=== PATIENT | male | born 1975 | race Caucasian/White ===

== ENCOUNTER 2017-01-05 20:14 | Emergency (ER) | payer OTHER ==
[2017-01-05 20:17] VITALS: TEMP 36.5; Ht 180.3 cm
[2017-01-05] MEDS ORDERED: ONDANSETRON INJ 2 MG/ML 2 ML VIAL IV PRN (20:30)
[2017-01-05] MEDS: MoRPHine SULFATE 10 MG/ML CARP/VIAL IV PRN ×2 (20:35→22:32)
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
[2017-01-05] MEDS ORDERED: OPTIRAY 320 IV PRN (20:45)
[2017-01-05 20:47] LABS: HEMATOCRIT 46.3 % (42-52); MEAN CELL VOLUME 93.5 fL (80-100); MEAN CORPUSCULAR HEMOGLOBIN 32.5 pg (25-34); MEAN CORPUSCULAR HGB CONC 34.8 g/dl (32-36); MEAN PLATELET VOLUME 10.3 fL (7.4-10.4); PLATELET COUNT 279 K/uL (130-400); RED BLOOD COUNT 4.95 M/uL (4.7-6.1); WHITE BLOOD COUNT 13.04 K/uL (4.8-10.8)
[2017-01-05 21:03] LABS: BLOOD UREA NITROGEN 11 mg/dl (7-18); BUN/CREATININE RATIO 9.5 (10-20); CALCIUM 9.1 mg/dl (8.5-10.1); CARBON DIOXIDE 28 mmol/L (21-32); CHLORIDE 105 mmol/L (98-107); CREATININE 1.13 mg/dl (0.60-1.40); GLUCOSE 119 mg/dl (70-99); POTASSIUM 4.4 mmol/L (3.5-5.1); SODIUM 138 mmol/L (136-145)
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
--- NOTE | 2017-01-05 21:51 | DIAGNOSTIC IMAGING REPORT ---
ABD/PELVIS IV CONTRAST ONLY CLINICAL HISTORY: 41 years-old Male presenting with fall severe pain left lower chest and LUQ. TECHNIQUE: Multidetector CT of the abdomen and pelvis was performed after the administration of intravenous contrast. IV contrast: 94 mL of Optiray 320. A dose lowering technique was used consistent with the principles of ALARA (as low as reasonably achievable). COMPARISON: None. CT DOSE (mGy.cm): The estimated cumulative dose is 861.93 mGy.cm. FINDINGS: Triage Register Nurse topogram: Unremarkable. Lung bases: Bibasilar bandlike opacities likely atelectasis. Normal heart size. No pericardial or pleural effusion. Liver: Normal morphology. No liver lesion. Patent hepatic vasculature. Biliary: No intrahepatic or extrahepatic biliary ductal dilatation. Normal gallbladder. Pancreas: Normal. Spleen: Normal. Adrenal glands: Normal. Kidneys and ureters: Normal. No hydronephrosis. Bladder: Normal. Pelvic organs: Prostate and seminal vesicles normal. Bowel: Normal appendix. No bowel obstruction. No gross evidence of bowel wall thickening. Peritoneal cavity: No free fluid or intraperitoneal gas. Lymph nodes: No enlarged lymph nodes in the abdomen or pelvis. Vasculature: Aorta and IVC patent and normal in caliber. Abdominal wall: Normal. Musculoskeletal: Normal. IMPRESSION: 1. No acute intra-abdominal injury. Electronically signed by: Srinivasa Niño M.D. 01/05/2017 9:49 PM Dictated Date/Time: 01/05/2017 9:45 PM
[2017-01-06 00:13] LABS: URINE APPEARANCE CLEAR (CLEAR); URINE BILIRUBIN NEG (NEG); URINE COLOR YELLOW; URINE EPITHELIAL CELL AUTO 20-30 /lpf (0-5); URINE NITRITE NEG (NEG); URINE SPECIFIC GRAVITY > 1.045 (1.000-1.030); UROBILINOGEN NEG (NEG); ZZUR CULT IF INDIC CLEAN CATCH NO
[2017-01-06 00:18] LABS: MANUAL MICROSCOPIC REQUIRED? NO; REVIEW REQ? NO
[2017-01-06] MEDS ORDERED: ONDA4TAB46 PO (00:41)
[2017-01-06] MEDS ORDERED: OXYC-57 PO (00:41)
[2017-01-06] MEDS ORDERED: ONDANSETRON HOME PACK 4MG OD TAB PO ONE (01:00)
[2017-01-06] MEDS ORDERED: PERCOCET HOME PACK PO ONE (01:00)
[2017-01-06] MEDS: MoRPHine SULFATE 10 MG/ML CARP/VIAL IV PRN (01:06)
[2017-01-06 01:11] VITALS: BP 124/87; PULSE 94; O2SAT 95
== END 2017-01-06 01:15 | disposition home or self-care (01) ==
LOC: C.EDB 20:15
DX: S20.20XA Contusion of thorax, unspecified, initial encounter (principal); J98.11 Atelectasis; E86.0 Dehydration; V18.4XXA Pedal cycle driver injured in noncollision transport accident in traffic accident, initial encounter; Y93.55 Activity, bike riding; Y99.8 Other external cause status; F17.200 Nicotine dependence, unspecified, uncomplicated; Z82.49 Family history of ischemic heart disease and other diseases of the circulatory system